=== PATIENT | male | born 1965 | race Caucasian/White ===

== ENCOUNTER 2019-10-10 04:20 | Emergency (ER) | payer BC ==
[2019-10-10] MEDS ORDERED: Morphine 4 MG/ML VIAL ONE (04:31)
[2019-10-10] MEDS ORDERED: Ondansetron PF 4 MG/2 ML Vial ONE (04:31)
[2019-10-10 04:49] LABS: #Eosinphils 0.2 thou/uL (0.0-0.7); #Lymphocytes 1.9 thou/uL (1.20-3.40); #Monocytes 0.6 thou/uL (0.11-0.59); #Neutrophils 4.4 thou/uL (1.40-6.50); %Basophils 0.7 % (0.0-1.0); %Eosinophils 2.1 % (0.0-10.0); %Lymphocytes 26.8 % (21.0-51.0); %Monocytes 8.7 % (0.0-10.0); %Neutrophils 61.7 % (42.0-75.0); Hemoglobin 16.3 g/dL (14.0-18.0); Mean Corpuscular HGB CONC 35.5 g/dL (32.0-36.0); Mean Corpuscular Hemoglobin 33.1 pg (27.0-31.0); Mean Platelet Volume 6.8 fL (7.4-10.4); Platelet Count 143 thou/uL (130-400); RBC Distribution Width 11.7 % (11.5-14.5); Red Blood Cell (RBC) Count 4.93 mill/uL (4.70-6.10); White Blood Cell (WBC) Count 7.1 thou/uL (4.8-10.8)
[2019-10-10 05:11] LABS: ALT (SGPT) 28 U/L (8-55); AST (SGOT) 22 U/L (5-34); Albumin 4.7 g/dL (3.5-5.0); Alkaline Phosphatase 82 U/L (40-110); Anion Gap 17 mmol/L (10-20); BUN (Urea Nitrogen) 10 mg/dL (8.4-25.7); Bilirubin, Total 0.6 mg/dL (0.2-1.2); Calc. Creatinine Clearance 0 mL/min (70-130); Calcium 8.9 mg/dL (7.8-10.44); Carbon Dioxide 22 mmol/L (22-29); Chloride 103 mmol/L (98-107); Estimated GFR-MDRD Greater than 90; Globulin 3.3 g/dL (2.4-3.5); Glucose 108 mg/dL (70-105); Potassium 3.7 mmol/L (3.5-5.1); Sodium 138 mmol/L (136-145)
[2019-10-10] MEDS ORDERED: Ketorolac Tromethamine 30 MG/ML VIAL ONE (06:12)
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
[2019-10-10] MEDS ORDERED: Iopamidol-370 76% 500 ML 1 ML ONE (11:19)
== END 2019-10-10 06:49 | disposition home or self-care (01) ==
LOC: ERS 04:20
DX: S22.32XA Fracture of one rib, left side, initial encounter for closed fracture (principal); Z79.891 Long term (current) use of opiate analgesic; Z79.899 Other long term (current) drug therapy; V86.59XA Driver of other special all-terrain or other off-road motor vehicle injured in nontraffic accident, initial encounter
CPT/HCPCS: 36415; 70450; 71260; 72125; 74177; 80053; 85025; 96374; 96375; J1885; J2270; J2405; Q9967